=== PATIENT | male | born 1950 | race Caucasian/White ===

== ENCOUNTER → 2018-12-21 | Outpatient (CLI) | payer OTHER ==
[~2018-12-21] MED LIST: ALLEGRA-D 24 H1 EACH PO; BENICAR20 MG PO; CRESTOR10 MG PO; Coumadin7.5 MG PO; FLONASE ALLERG9.9 ML NAS; LOVENOX100 MG/1 M PO; NORVASC10 MG PO; PRILOSEC20 MG PO; PROAIR HFA8.5 GM INH; QUINAPRIL40 MG PO; VICODIN 5/500 505 MG PO
--- NOTE | ~2018-12-21 | ST ---
[place], [place] EXERCISE STRESS TEST REPORT NAME: KMAALJIT SALDANA [facility]: [id number] UNIT #: [id number] ROOM: DOCTOR: ALFRED GOMEZ,ZARI BIRTHDATE: [birth year] DOS: 12/21/2018 The patient walked on the Kiran protocol, duration of about 7 minutes. Heart rate is about 123. The patient heart rate of 55. This represents almost 100% of the predicted heart rate. No chest discomfort, no dysrhythmia. Blood pressure and heart rate response was normal. Nuclear images will be reported separately. ZARI SIMON MD CM:STRESS:EXERCISE STRESS TEST REPORT [id number] ZARI SIMON MD
--- NOTE | 2018-12-21 07:15 | NUR ---
INFORMED CONSENT SIGNED FOR CARDIOLYTE STRESS TEST WITH DR. SIMON. RESTING EKG SINUS BRADYCARDIA, HR 57, BP 124/84. COMPLETED 7:23 OF A TWO MINUTE JERRI PROTOCOL COMPLETING 1:23 STAGE III, 3.4 MPH/14% GRADE. PEAK HEART RATE OF 129 ACHIEVED WHICH IS 84% PREDICTED MAXIMUM AND A PEAK BP OF 158/94. NO ARRHYTHMIAS OR ST CHANGES NOTED. TEST TERMINATED D/T FATIGUE. HAS A GOOD EXERCISE TOLERANCE. LAST RECOVERY HR 91, BP 148/76. WAITING NUCLEAR SCANNING IN STABLE CONDITION.
== END | disposition home or self-care (01) ==
LOC: CARD 00:11
DX: R07.9 Chest pain, unspecified (principal)

== ENCOUNTER → 2021-03-29 | Outpatient (CLI) | payer MEDICARE ==
[2021-03-29 10:12] LABS: HEMATOCRIT 46.7 % (42.0-52.0)
[2021-03-29 10:13] LABS: BILIRUBIN Negative (Negative); BLOOD Negative (Negative); CLARITY Clear (Clear); COLOR Yellow (Yellow); GLUCOSE Negative (Negative); KETONE Negative (Negative); LEUKO ESTERASE Negative (Negative); NITRITE Negative (Negative); PH 7.5 (4.5-8.0)
[2021-03-29 10:21] LABS: BACTERIA TRACE; EPITHELIAL CELLS 0-2; MUCOUS TRACE; RBC 0-2 rbc/hpf (0-2)
[2021-03-29 10:22] LABS: CREATININE 1.43 mg/dL (0.70-1.30); POTASSIUM 4.6 mmol/L (3.5-5.1)
[2021-03-29 12:14] LABS: VITAMIN D, 25-HYDROXY 49.2 ng/mL (30-100)
[2021-03-29 12:15] LABS: PTH INTACT 73.2 pg/mL (18.5-88.0)
[2021-03-30 09:06] LABS: CREATININE,URINE 92.1 mg/dL (Not Estab.)
== END | disposition home or self-care (01) ==
LOC: LAB 09:45
PROVIDERS: ATTEND Internal Medicine
DX: I12.9 Hypertensive chronic kidney disease with stage 1 through stage 4 chronic kidney disease, or unspecified chronic kidney disease (principal); N18.31 Chronic kidney disease, stage 3a; E55.9 Vitamin D deficiency, unspecified; N28.1 Cyst of kidney, acquired; D64.9 Anemia, unspecified

== ENCOUNTER → 2023-10-15 | Outpatient (CLI) | payer MEDICARE | END | disposition home or self-care (01) | LOC: RESCLI 08:28 | PROVIDERS: ATTEND Internal Medicine | DX: I12.9 Hypertensive chronic kidney disease with stage 1 through stage 4 chronic kidney disease, or unspecified chronic kidney disease (principal); N18.31 Chronic kidney disease, stage 3a; E78.5 Hyperlipidemia, unspecified; T78.40XA Allergy, unspecified, initial encounter; E55.9 Vitamin D deficiency, unspecified; L30.9 Dermatitis, unspecified; D68.51 Activated protein C resistance; J44.9 Chronic obstructive pulmonary disease, unspecified; K21.9 Gastro-esophageal reflux disease without esophagitis; F17.200 Nicotine dependence, unspecified, uncomplicated; K44.9 Diaphragmatic hernia without obstruction or gangrene; Z98.890 Other specified postprocedural states; Z79.899 Other long term (current) drug therapy; X58.XXXA Exposure to other specified factors, initial encounter ==